=== PATIENT | male | born 1935 | race Two or more races ===

== ENCOUNTER → 2019-07-07 | Outpatient (CLI) | payer MEDICARE, BC ==
--- NOTE | 2019-07-08 07:28 | US ---
EXAMINATION TYPE: US carotid duplex BILAT DATE OF EXAM: 07/07/2019 COMPARISON: NONE CLINICAL HISTORY: R09.89 Carotid bruit on examination. EXAM MEASUREMENTS: RIGHT: Peak Systolic Velocity (PSV) cm/sec ----- Right CCA: 85.3 ----- Right ICA: 74.7 ----- Right ECA: 116.9 ICA/CCA ratio: 0.9 RIGHT: End Diastole cm/sec ----- Right CCA: 17.1 ----- Right ICA: 19.7 ----- Right ECA: 9.4 LEFT: Peak Systolic Velocity (PSV) cm/sec ----- Left CCA: 69.2 ----- Left ICA: 76.2 ----- Left ECA: 82.3 ICA/CCA ratio: 1.1 LEFT: End Diastole cm/sec ----- Left CCA: 15.1 ----- Left ICA: 27.3 ----- Left ECA: 10.7 VERTEBRALS (direction of flow): Right Vertebral: Antegrade Left Vertebral: Antegrade Rhythm: Normal Mild to moderate atherosclerotic changes with no significant velocity increases. IMPRESSION: Mild to moderate degree of grayscale atheromatous plaquing with no sonographically evide nt hemodynamically significant stenosis within either visualized carotid arterial system. Criteria for Assigning % of Stenosis / Diameter reduction (Estimation based on the indirect measurements of the internal carotid artery velocities (ICA PSV). 1. Normal (no stenosis)=ICA PSV < 125 cm/s: ratio < 2.0: ICA EDV<40 cm/s. 2. Less than 50% stenosis=ICA PSV < 125 cm/s: ratio < 2.0: ICA EDV<40 cm/s. 3. 50 to 69% stenosis=ICA PSV of 125 to 230 cm/s: ration 2.0 ? 4.0: ICA EDV 40-100 cm/s. 4. Greater than 70% stenosis to near occlusion= ICA PSV > 230 cm/s: ratio > 4.0: ICA EDV > 100 cm/s. 5. Near occlusion= ICA PSV velocities may be low or undetectable: variable ratio and ICA EDV. 6. Total occlusion=unable to detect flow.
== END | disposition home or self-care (01) ==
LOC: RADUSWWP 15:55
PROVIDERS: ATTEND Family Medicine
DX: I65.23 Occlusion and stenosis of bilateral carotid arteries (principal)
CPT/HCPCS: 93880

== ENCOUNTER → 2019-07-15 | Outpatient (CLI) | payer MEDICARE, BC ==
[2019-07-15 09:02] LABS: Basophils # (A) 0.1 k/uL (0-0.2); Basophils % (A) 1 %; Eosinophils # (A) 0.3 k/uL (0-0.7); Eosinophils % (A) 6 %; HCT 42.8 % (39.0-53.0); HGB 14.1 gm/dL (13.0-17.5); Lymphocytes # (A) 1.7 k/uL (1.0-4.8); Lymphocytes % (A) 34 %; MCH 29.9 pg (25.0-35.0); MCHC 32.9 g/dL (31.0-37.0); MCV 90.8 fL (80.0-100.0); Mean Platelet Volume 7.2; Monocytes # (A) 0.3 k/uL (0-1.0); Monocytes % (A) 7 %; Neutrophils # (A) 2.4 k/uL (1.3-7.7); Neutrophils % (A) 48 %; Platelet Count 185 k/uL (150-450); RBC 4.72 m/uL (4.30-5.90); RDW 13.1 % (11.5-15.5); WBC 4.9 k/uL (3.8-10.6)
[2019-07-15 16:51] LABS: ALT 23 U/L (10-49); AST 37 U/L (14-35); African American GFR (CKD) 57.3 (60.0-200.0); Alkaline Phosphatase 69 U/L (41-126); BUN/Creat Ratio 19.23 Ratio (12.00-20.00); Calcium 9.1 mg/dL (8.7-10.3); Carbon Dioxide 27.5 mmol/L (21.6-31.8); Chloride 107 mmol/L (96-109); Chol/HDL Ratio 3.05; Cholesterol 119 mg/dL (0-200); Glucose 88 mg/dL (70-110); Potassium 4.5 mmol/L (3.5-5.5); Sodium 141 mmol/L (135-145); Total Protein 6.2 g/dL (6.2-8.2); Triglycerides <50.0 mg/dL (0.0-149.0); VLDL Calculation 9.98 mg/dL (5.00-40.00)
== END | disposition home or self-care (01) ==
LOC: LABWHC1 08:41
PROVIDERS: ATTEND Physician Assistant
DX: Z00.01 Encounter for general adult medical examination with abnormal findings (principal); I10 Essential (primary) hypertension; E78.00 Pure hypercholesterolemia, unspecified
CPT/HCPCS: 36415; 80053; 80061; 85025

== ENCOUNTER 2022-08-18 18:45 | Emergency (ER) | payer MEDICARE, BC ==
[2022-08-18 19:15] VITALS: RESP 16
--- NOTE | 2022-08-18 19:29 | ED ---
General Adult HPI - General Chief complaint: Fall Stated complaint: Fall, Shoulder injury Time Seen by Provider: 08/18/22 19:16 Source: patient Mode of arrival: ambulatory Limitations: no limitations - History of Present Illness Initial comments: Dictation was produced using [employer] dictation software. please excuse any grammatical, word or spelling errors. Chief Complaint: 87-year-old male presents with left shoulder pain after fall History of Present Illness: Patient is an 87-year-old male he was at the top of the steps when he lost his balance and fell on the stairs. Patient states that he did not hit his head or hurt his neck. Denies any loss of consciousness. Slit of the stairs and hurt his left shoulder. Patient has any numbness to groin paresthesias to the left upper extremity. States that it hurts towards the lateral and posterior part of his left shoulder. The ROS documented in this emergency department record has been reviewed and confirmed by me. Those systems with pertinent positive or negative responses have been documented in the HPI. All other systems are other negative and/or noncontributory. PHYSICAL EXAM: General Impression: Alert and oriented x3, not in acute distress HEENT: Normocephalic atraumatic, extra-ocular movements intact, pupils equal and reactive to light bilaterally, mucous membranes moist. Cardiovascular: Heart regular rate and rhythm Chest: Able to complete full sentences, no retractions, no tachypnea Abdomen: abdomen soft, non-tender, non-distended, no organomegaly Musculoskeletal: Pulses present and equal in all extremities, no peripheral edema, palpatory tenderness with some swelling over the left humeral head, left upper extremity is neurovascularly intact Motor: no focal deficits noted Neurological: CN II-XII grossly intact, no focal motor or sensory deficits noted Skin: Intact with no visualized rashes Psych: Normal affect and mood ED course: 87-year-old male presents to emergency department after fall. He presents with left shoulder pain. Vital signs upon arrival are within acceptable limits. Patient does not take any anticoagulation medications. He is relatively healthy for an 87-year-old male. Shoulder x-ray shows no acute fracture. Computed tomography scan of the head is unremarkable. Buccal presentation consistent with shoulder contusion versus shoulder strain. Patient given a arm sling. There is concern of perhaps soft tissue injury that should be evaluated further by primary care doctor. EKG interpretation: Ventricular rate 60, sinus rhythm,. Interval 159, care is 111, QTc 447. No FL prolongation, no QTC prolongation, no ST or T-wave changes noted. No old EKG for comparison. Overall, this EKG is unremarkable - Related Data Allergies Allergy/AdvReac Type Severity Reaction Status Date / Time No Known Allergies Allergy Verified 08/18/22 19:07 Review of Systems ROS Statement: Those systems with pertinent positive or pertinent negative responses have been documented in the HPI. ROS Other: All systems not noted in ROS Statement are negative. Past Medical History Past Medical History: Hearing Disorder / Deafness, Hyperlipidemia, Hypertension History of Any Multi-Drug Resistant Organisms: None Reported Past Surgical History: Orthopedic Surgery Past Psychological History: No Psychological Hx Reported Smoking Status: Never smoker Past Alcohol Use History: None Reported Past Drug Use History: None Reported General Exam Limitations: no limitations Course Vital Signs 08/18/22 08/18/22 19:04 19:12 Temperature 98.4 F 98.2 F Pulse Rate 70 60 Respiratory 20 16 Rate Blood Pressure 150/96 176/140 O2 Sat by Pulse 97 97 Oximetry Disposition Clinical Impression: Shoulder contusion Disposition: HOME SELF-CARE Condition: Good Instructions (If sedation given, give patient instructions): Fall Prevention for Older Adults (ED), Rotator Cuff Injury Exercises (DC) Is patient prescribed a controlled substance at d/c from ED?: No Referrals: Arcenio Urrutia MD [Primary Care Provider] - 1-2 days Time of Disposition: 20:24
--- NOTE | 2022-08-18 20:12 | XR ---
EXAMINATION TYPE: XR shoulder complete LT DATE OF EXAM: 08/18/2022 COMPARISON: NONE HISTORY: Shoulder pain TECHNIQUE: 3 views FINDINGS: There is no fracture nor dislocation. Glenohumeral joint is intact. No pathologic calcifica tion. IMPRESSION: Negative left shoulder exam. No fracture.
--- NOTE | 2022-08-18 20:14 | CT ---
EXAMINATION TYPE: CT brain edenine wo con DATE OF EXAM: 08/18/2022 COMPARISON: None HISTORY: fall CT DLP: 1425.7 mGycm Automated exposure control for dose reduction was used. Images obtained of the brain and cervical spine without contrast. There is cerebral cortical atrophy. There is no mass effect or midline shift. No sign of intracranial hemorrhage. Calvarium is intact. The cervical vertebra have normal alignment. Disc space narrowing present at C5-6 and C6-7. There is spurring of the endplates. Facet joints are intact. There is minor hypertrophic facet arthropathy. Pr evertebral soft tissues are intact. 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 Mild spondylosis in the remainder of the cervical spine. No fracture. Cerebral atrophy. No acute intracranial abnormality.
[2022-08-18 20:36] VITALS: BP 140/80; PULSE 76; TEMP 98
== END 2022-08-18 20:37 | disposition home or self-care (01) ==
LOC: EC 18:45
DX: S40.012A Contusion of left shoulder, initial encounter (principal); E78.5 Hyperlipidemia, unspecified; I10 Essential (primary) hypertension; W10.9XXA Fall (on) (from) unspecified stairs and steps, initial encounter
CPT/HCPCS: 70450; 72125; 93005; 99284